=== PATIENT | male | born 1965 | race American Indian/Alaskan Native ===

== ENCOUNTER 2019-06-02 01:54 | Emergency (ER) | payer SELFPAY ==
--- NOTE | 2019-06-02 02:43 | Emergency Department Report ---
ED ENT HPI - General Chief complaint: High BP Stated complaint: ELEVATED BLOOD PRESSURE, NOSEBLEED Time Seen by Provider: 06/02/19 02:28 Source: patient, EMS Mode of arrival: Ambulatory Limitations: No Limitations - History of Present Illness Initial comments: 53-year-old male with a past medical history of poorly controlled hypertension presents to the hospital complaining of epistaxis from the left nostril that started about 1:45 AM. Bleeding improved prior to arrival. Patient states his blood pressure is chronically elevated with a systolic in the 180s and diastolic above 100. He presents with elevated blood pressure and denies headache, chest pain, shortness of breath, blurred vision, focal weakness, or numbness. He saw his primary care doctor 1 week ago and presented in his blood pressure was 184/100s and was advised to take better care of himself and his medications were not adjusted. Patient takes losartan 100 mg and hydrochlorothiazide 25 mg every morning and he has been compliant. Patient took an extra half tablet of losarta n 100 mg prior to arrival because of the epistaxis. Patient admits to in increasing his salt intake over the last 2 days. Patient denies pain or recent nasal trauma. Patient denies anticoagulant use including aspirin and Plavix. PMD: Dr. Guzman with [facility]. - Related Data Allergies Allergy/AdvReac Type Severity Reaction Status Date / Time No Known Allergies Allergy Unverified 06/02/19 02:40 ED Dental HPI - General Chief complaint: High BP Stated complaint: ELEVATED BLOOD PRESSURE, NOSEBLEED Time Seen by Provider: 06/02/19 02:28 Source: patient, EMS Mode of arrival: Ambulatory Limitations: No Limitations - Related Data Allergies Allergy/AdvReac Type Severity Reaction Status Date / Time No Known Allergies Allergy Unverified 06/02/19 02:40 ED Review of Systems ROS: Stated complaint: ELEVATED BLOOD PRESSURE, NOSEBLEED Other details as noted in HPI Comment: All other systems reviewed and negative ED Past Medical Hx - Past Medical History Previous Medical History?: Yes Hx Hypertension: Yes - Social History Smoking Status: Current Every Day Smoker Substance Use Type: Alcohol ED Physical Exam - General Limitations: No Limitations - Other Other exam information: General: No acute distress Head: Atraumatic Eyes: normal appearance ENT: Moist mucous membranes, dried blood in bilateral nares with left nasal congestion. No active bleeding Neck: Normal appearance, no midline tenderness Chest: Clear to auscultation bilaterally CV: Regular rate and rhythm Abdomen: Soft, normal bowel sounds, nontender, nondistended, no rebound or guarding Back: Normal inspection Extremity: Normal inspection infection, full range of motion Neuro: Alert O x 3, no facial asymmetry, speech clear, no gross motor sensory deficit Psych: Appropriate behavior Skin: No rash ED Course Vital Signs 06/02/19 06/02/19 06/02/19 02:25 02:27 03:01 Temperature 98.4 F Pulse Rate 82 84 79 Respiratory 22 20 20 Rate Blood Pressure 184/116 157/117 O2 Sat by Pulse 95 95 96 Oximetry 06/02/19 06/02/19 06/02/19 04:00 04:20 05:01 Temperature Pulse Rate 78 93 H Respiratory 22 Rate Blood Pressure 186/123 223/117 179/126 O2 Sat by Pulse 94 97 Oximetry - Reevaluation(s) Reevaluation #1: 06/02/19 04:21 bp trending up again, pt upset because he has gotten a blanket and inks that no one is tending to his needs. I reminded patient of our initial conversation about the risk of dropping his blood pressure too low and he was being observed for recurrent bleeding. Patient also states he had rebleeding of his nostril but once again is stopped. Patient offered nasal packing and declined it. Clonidine 0.1 mg ordered to reduce his blood pressure. Since it has increased since his arrival after patient got upset. Reevaluation #2: 06/02/19 05:50 Patient's blood pressure 172/120 and patient states is at about his baseline. Patient also plans to take his BP medications when he gets home. He is currently asymptomatic, denies pain, and no epistaxis. Will be discharged to follow-up with PMD ED Medical Decision Making - Lab Data Result diagrams: 06/02/19 02:45 06/02/19 02:45 Lab Results 06/02/19 06/02/19 Range/Units 02:45 02:45 WBC 6.2 (4.5-11.0) K/mm3 RBC 4.84 (3.65-5.03) M/mm3 Hgb 15.8 H (11.8-15.2) gm/dl Hct 46.1 H (35.5-45.6) % MCV 95 H (84-94) fl MCH 33 H (28-32) pg MCHC 34 (32-34) % RDW 14.3 (13.2-15.2) % Plt Count 265 (140-440) K/mm3 Lymph % (Auto) 28.6 (13.4-35.0) % Williams % (Auto) 14.4 H (0.0-7.3) % Eos % (Auto) 1.2 (0.0-4.3) % Baso % (Auto) 0.8 (0.0-1.8) % Lymph # 1.8 (1.2-5.4) K/mm3 Williams # 0.9 H (0.0-0.8) K/mm3 Eos # 0.1 (0.0-0.4) K/mm3 Baso # 0.1 (0.0-0.1) K/mm3 Seg Neutrophils % 55.0 (40.0-70.0) % Seg Neutrophils # 3.4 (1.8-7.7) K/mm3 Sodium 137 (137-145) mmol/L Potassium 3.8 (3.6-5.0) mmol/L Chloride 100.3 (98-107) mmol/L Carbon Dioxide 24 (22-30) mmol/L Anion Gap 17 mmol/L BUN 22 H (9-20) mg/dL Creatinine 1.3 (0.8-1.5) mg/dL Estimated GFR 58 ml/min BUN/Creatinine Ratio 17 % Glucose 120 H (75-100) mg/dL Calcium 9.3 (8.4-10.2) mg/dL - Medical Decision Making During ed stay, no further bleeding bp chronically elevated and trending downward after clonidine labs unremarkable plan to d/c with ent and pmd f/u - Differential Diagnosis Epistaxis, coagulopathy, hypertensive emergency, chronic hypertension Critical Care Time: No Critical care attestation.: If time is entered above; I have spent that time in minutes in the direct care of this critically ill patient, excluding procedure time. ED Disposition Clinical Impression: Epistaxis, Uncontrolled hypertension Disposition: TO HOME OR SELFCARE Is pt being admited?: No Does the pt Need Aspirin: No Condition: Stable Instructions: Epistaxis (ED), Hypertension (ED) Additional Instructions: Continue your current medications as prescribed. Follow-up with your doctor or doctor/clinic provided. Return if symptoms worsen as indicated by your discharge instructions. Referrals: Your, PMD [Other] - 2-3 Days NIRAJ JAVED MD [Staff Physician] - 3-5 Days (ENT) Time of Disposition: 05:51
[2019-06-02 03:02] LABS: Basophils # (Auto) 0.1 K/mm3 (0.0-0.1); Basophils % (Auto) 0.8 % (0.0-1.8); Eosinophils # (Auto) 0.1 K/mm3 (0.0-0.4); Eosinophils % (Auto) 1.2 % (0.0-4.3); Hematocrit 46.1 % (35.5-45.6); Hemoglobin 15.8 gm/dl (11.8-15.2); Lymphocytes # (Auto) 1.8 K/mm3 (1.2-5.4); Lymphocytes % (Auto) 28.6 % (13.4-35.0); Mean Corpuscular HGB Conc 34 % (32-34); Mean Corpuscular Volume 95 fl (84-94); Monocytes # (Auto) 0.9 K/mm3 (0.0-0.8); Monocytes % (Auto) 14.4 % (0.0-7.3); Platelet Count 265 K/mm3 (140-440); Red Blood Count 4.84 M/mm3 (3.65-5.03); Red Cell Distribution Width 14.3 % (13.2-15.2)
[2019-06-02 03:28] LABS: Calcium 9.3 mg/dL (8.4-10.2)
[2019-06-02] MEDS ORDERED: cloNIDine 0.2 MG TAB PO ONE (04:16)
[2019-06-02] MEDS ORDERED: cloNIDine 0.1 MG TAB PO ONE (04:17)
[2019-06-02 05:18] VITALS: BP 179/126
== END 2019-06-02 06:15 | disposition home or self-care (01) ==
LOC: ED 01:54
DX: R04.0 Epistaxis (principal); I10 Essential (primary) hypertension; F17.200 Nicotine dependence, unspecified, uncomplicated
CPT/HCPCS: 36415; 80048; 85025

== ENCOUNTER 2019-06-02 12:28 | Emergency (ER) | payer SELFPAY ==
--- NOTE | 2019-06-02 14:05 | Event Note ---
ED Screening Note Date of service: 06/02/19 Time: 14:02 ED Screening Note: 53 y/o male comes back in for nose bleed. Patient was seen last night for the same. This initial assessment/diagnostic orders/clinical plan/treatment(s) is/are subject to change based on patients health status, clinical progression and re- assessment by fellow clinical providers in the ED. Further treatment and workup at subsequent clinical providers discretion. Patient/guardian urged not to elope from the ED as their condition may be serious if not clinically assessed and managed. Initial orders include:
[2019-06-02 14:06] VITALS: BP 193/130
[2019-06-02] MEDS ORDERED: OXYMETAZOLINE 0.05% NASAL SPRAY NS ONE (14:13)
[2019-06-02] MEDS ORDERED: ACETAMINOPHEN 500 MG TAB PO ONE (14:14)
[2019-06-02] MEDS ORDERED: ACETAMINOPHEN 500 MG TAB ONE (14:17)
--- NOTE | 2019-06-02 14:30 | Emergency Department Report ---
ED ENT HPI - General Chief complaint: Nosebleed Stated complaint: NOSE BLEED Time Seen by Provider: 06/02/19 14:02 Source: patient Mode of arrival: Ambulatory Limitations: No Limitations - History of Present Illness Initial comments: 53-year-old male with a past medical history of poorly controlled hypertension presents to the hospital complaining of epistaxis from the left nostril that re- started this morning. Bleeding improved prior to arrival. Patient takes losartan 100 mg and hydrochlorothiazide 25 mg every morning and he has been compliant. Patient denies pain or recent nasal trauma. Patient denies anticoagulant use including aspirin and Plavix. PMD: with [facility]. complaint: epistaxis Onset/Timin -: days(s) Location: nose Severity: moderate Severity scale (0 -10): 4 Context-Epistaxis: history of similar - Related Data Previous Rx's Medication Instructions Recorded Last Taken Type Sulfamethoxazole/Trimethoprim 1 each PO BID #14 tablet 06/02/19 Unknown Rx [Bactrim DS TAB] amLODIPine 10 mg PO DAILY #30 tab 06/02/19 Unknown Rx Allergies Allergy/AdvReac Type Severity Reaction Status Date / Time No Known Allergies Allergy Verified 06/02/19 14:01 ED Dental HPI - General Chief complaint: Nosebleed Stated complaint: NOSE BLEED Time Seen by Provider: 06/02/19 14:02 Source: patient Mode of arrival: Ambulatory Limitations: No Limitations - Related Data Previous Rx's Medication Instructions Recorded Last Taken Type Sulfamethoxazole/Trimethoprim 1 each PO BID #14 tablet 06/02/19 Unknown Rx [Bactrim DS TAB] amLODIPine 10 mg PO DAILY #30 tab 06/02/19 Unknown Rx Allergies Allergy/AdvReac Type Severity Reaction Status Date / Time No Known Allergies Allergy Verified 06/02/19 14:01 ED Review of Systems ROS: Stated complaint: NOSE BLEED Other details as noted in HPI Comment: All other systems reviewed and negative ED Past Medical Hx - Past Medical History Hx Hypertension: Yes - Surgical History Past Surgical History?: No - Social History Smoking Status: Current Every Day Smoker Substance Use Type: None - Medications Home Medications: Home Medications Medication Instructions Recorded Confirmed Last Taken Type Sulfamethoxazole/Trimethoprim 1 each PO BID #14 tablet 06/02/19 Unknown Rx [Bactrim DS TAB] amLODIPine 10 mg PO DAILY #30 tab 06/02/19 Unknown Rx ED Physical Exam - General Limitations: No Limitations General appearance: alert, in no apparent distress - Head Head exam: Present: atraumatic, normocephalic - Eye Eye exam: Present: normal appearance - ENT ENT exam: Present: mucous membranes moist - Neck Neck exam: Present: normal inspection, full ROM - Neurological Exam Neurological exam: Present: alert, oriented X3, normal gait ED Course Vital Signs 06/02/19 06/02/19 12:33 14:04 Temperature 97.7 F Pulse Rate 87 94 H Respiratory 17 16 Rate Blood Pressure 176/132 193/130 [Right] O2 Sat by Pulse 98 97 Oximetry - Procedure Description Procedures done: nasal rocket with Afrin and lube placed in left nostril. Patient tolerated well. Critical care attestation.: If time is entered above; I have spent that time in minutes in the direct care of this critically ill patient, excluding procedure time. ED Disposition Clinical Impression: Epistaxis, Uncontrolled hypertension Disposition: - TO HOME OR SELFCARE Is pt being admited?: No Does the pt Need Aspirin: No Condition: Stable Instructions: Epistaxis (ED), Chronic Hypertension (ED), Hypertension (ED) Additional Instructions: Follow up your Primary Care provider in three days to have Blood pressure checked and removal of nasal Rocket. Prescriptions: amLODIPine 10 mg PO DAILY #30 tab Sulfamethoxazole/Trimethoprim [Bactrim DS TAB] 1 each PO BID #14 tablet Referrals: NIRAJ JAVED MD [Staff Physician] - 3-5 Days CANDIDO KAHN MD [Referring] - 3-5 Days Forms: Work/School Release Form(ED)
== END 2019-06-02 15:22 | disposition home or self-care (01) ==
LOC: ED 12:28
DX: R04.0 Epistaxis (principal); I10 Essential (primary) hypertension; F17.200 Nicotine dependence, unspecified, uncomplicated; Z79.899 Other long term (current) drug therapy

== ENCOUNTER 2019-08-16 19:04 | Emergency (ER) | payer SELFPAY ==
[2019-08-16] MEDS ORDERED: cloNIDine 0.2 MG TAB PO ONE (20:29)
--- NOTE | 2019-08-16 20:35 | Emergency Department Report ---
ED General Adult HPI - General Chief complaint: High BP Stated complaint: HBP/BLEEDING NOSE Time Seen by Provider: 08/16/19 20:29 Source: patient Mode of arrival: Ambulatory Limitations: No Limitations - History of Present Illness Initial comments: 54-year-old male with history of hypertension presents to ED with epistaxis and elevated blood pressure. Patient states he has been compliant with his blood pressure medications, losartan and "a water pill." Patient states he took both medications this morning. Patient states he began to have a nosebleed, which led him to believe that his blood pressure was elevated, since he has experienced these episodes in the past. Patient reports eating baked pork chops and yellow rice, which he states probably was season with too much salt. Patient denies headache, dizziness, nausea or vomiting, chest pain, shortness of breath, extremity numbness or weakness. Patient reports he has been using Afrin spray for his sinus congestion due to his allergies for the last couple of weeks. PCP: [facility] -: This evening Consistency: constant Improves with: none Worsens with: none Associated Symptoms: denies: chest pain, headaches, nausea/vomiting, shortness of breath - Related Data Previous Rx's Medication Instructions Recorded Last Taken Type Sulfamethoxazole/Trimethoprim 1 each PO BID #14 tablet 06/02/19 Unknown Rx [Bactrim DS TAB] amLODIPine 10 mg PO DAILY #30 tab 06/02/19 Unknown Rx Allergies Allergy/AdvReac Type Severity Reaction Status Date / Time No Known Allergies Allergy Verified 06/02/19 14:01 ED Review of Systems ROS: Stated complaint: HBP/BLEEDING NOSE Other details as noted in HPI Comment: All other systems reviewed and negative ENT: epistaxis Respiratory: denies: shortness of breath Cardiovascular: denies: chest pain Gastrointestinal: denies: nausea, vomiting Neurological: denies: headache, weakness, numbness, vertigo ED Past Medical Hx - Past Medical History Previous Medical History?: Yes Hx Hypertension: Yes - Surgical History Past Surgical History?: No - Social History Smoking Status: Current Every Day Smoker - Medications Home Medications: Home Medications Medication Instructions Recorded Confirmed Last Taken Type Sulfamethoxazole/Trimethoprim 1 each PO BID #14 tablet 06/02/19 Unknown Rx [Bactrim DS TAB] amLODIPine 10 mg PO DAILY #30 tab 06/02/19 Unknown Rx ED Physical Exam - General Limitations: No Limitations General appearance: alert, in no apparent distress - Head Head exam: Present: atraumatic, normocephalic - Eye Eye exam: Present: normal appearance - ENT ENT exam: Present: other (Dried blood in nares) - Neck Neck exam: Present: normal inspection - Respiratory Respiratory exam: Present: normal lung sounds bilaterally. Absent: respiratory distress - Cardiovascular Cardiovascular Exam: Present: regular rate, normal rhythm - GI/Abdominal GI/Abdominal exam: Present: soft. Absent: distended, tenderness - Extremities Exam Extremities exam: Present: normal inspection - Neurological Exam Neurological exam: Present: alert, oriented X3, CN II-XII intact. Absent: motor sensory deficit - Psychiatric Psychiatric exam: Present: normal affect, normal mood - Skin Skin exam: Present: warm, dry, intact, normal color ED Course Vital Signs 08/16/19 08/16/19 08/16/19 19:12 19:44 20:01 Temperature 97.7 F Pulse Rate 93 H 81 79 Respiratory 18 20 21 Rate Blood Pressure 237/142 O2 Sat by Pulse 99 97 97 Oximetry 08/16/19 08/16/19 08/16/19 20:30 21:01 21:30 Temperature Pulse Rate 77 74 Respiratory 19 21 Rate Blood Pressure 203/123 221/137 216/137 O2 Sat by Pulse 97 98 98 Oximetry 08/16/19 08/16/19 08/16/19 21:37 22:00 23:01 Temperature Pulse Rate 71 72 Respiratory 20 Rate Blood Pressure 216/137 213/132 209/128 O2 Sat by Pulse 97 93 Oximetry ED Medical Decision Making - Lab Data Result diagrams: 08/16/19 20:34 08/16/19 20:34 - EKG Data -: EKG Interpreted by Sd EKG shows normal: sinus rhythm, axis, intervals, QRS complexes Rate: normal - EKG Data Interpretation: nonspecific ST-T wave beverley - Medical Decision Making 54-year-old male with uncontrolled hypertension and epistaxis. SBP initially in the 230s. Neuro exam normal and nonfocal. Patient without any headache or dizziness, chest pain or shortness of breath. Clonidine given for elevated blood pressure. Epistaxis resolved with constant steady pressure to the nose. Patient's blood pressure is likely elevated due to his daily use of Afrin spray which is known to raise blood pressure. This in addition to the fact that patient admits to having increased salt in his diet has probably led to the elevation in patient's blood pressure. Patient is currently asymptomatic. Current systolic BP is 209. Patient has been advised to continue to take his daily blood pressure medications, and has also been advised to immediately discontinue use of his Afrin spray. I believe with discontinuation of this Afrin spray patient's blood pressure will improved significantly. Advised patient to follow-up with his PCP. Return precautions given. - Differential Diagnosis Uncontrolled hypertension, epistaxis Critical care attestation.: If time is entered above; I have spent that time in minutes in the direct care of this critically ill patient, excluding procedure time. ED Disposition Clinical Impression: Uncontrolled hypertension, Epistaxis Disposition: - TO HOME OR SELFCARE Is pt being admited?: No Condition: Stable Instructions: Epistaxis (ED), Hypertension (ED) Referrals: PRIMARY CARE, [Primary Care Provider] - 3-5 Days NIRAJ JAVED MD [Staff Physician] - 3-5 Days Time of Disposition: 23:06
[2019-08-16 20:55] LABS: Basophils # (Auto) 0.1 K/mm3 (0.0-0.1); Basophils % (Auto) 1.1 % (0.0-1.8); Eosinophils # (Auto) 0.1 K/mm3 (0.0-0.4); Eosinophils % (Auto) 1.6 % (0.0-4.3); Hematocrit 45.5 % (35.5-45.6); Hemoglobin 15.4 gm/dl (11.8-15.2); Lymphocytes # (Auto) 2.1 K/mm3 (1.2-5.4); Mean Corpuscular HGB Conc 34 % (32-34); Mean Corpuscular Volume 96 fl (84-94); Monocytes # (Auto) 0.8 K/mm3 (0.0-0.8); Monocytes % (Auto) 14.7 % (0.0-7.3); Platelet Count 261 K/mm3 (140-440); Red Blood Count 4.74 M/mm3 (3.65-5.03); Red Cell Distribution Width 13.1 % (13.2-15.2)
[2019-08-16 21:16] LABS: BUN/Creatinine Ratio 17; Blood Urea Nitrogen 19 mg/dL (9-20); Calcium 9.3 mg/dL (8.4-10.2); Hemolysis Index 4
[2019-08-16 23:25] VITALS: BP 209/128
== END 2019-08-16 23:10 | disposition home or self-care (01) ==
LOC: ED 19:04
DX: R04.0 Epistaxis (principal); I10 Essential (primary) hypertension; F17.200 Nicotine dependence, unspecified, uncomplicated; Z79.899 Other long term (current) drug therapy
CPT/HCPCS: 36415; 80048; 85025; 99283

== ENCOUNTER 2019-08-17 06:05 | Emergency (ER) | payer SELFPAY ==
--- NOTE | 2019-08-17 06:25 | Emergency Department Report ---
HPI - General Chief Complaint: Nosebleed Time Seen by Provider: 08/17/19 06:20 - HPI HPI: 54-year-old -[place] male presents to the emergency department with right-sided epistaxis, for which she was seen here last night. He has a history of hypertension and consistent Afrin use. Last night he was given some clonidine for his blood pressure and with BP control and some pressure held to the nose, they were able to stop the epistaxis without packing and the patient was discharged home. He says that the bleeding started up again this morning about 30 minutes prior to arrival. He took his losartan 100 mg about that time. ED Past Medical Hx - Past Medical History Previous Medical History?: Yes Hx Hypertension: Yes - Surgical History Past Surgical History?: No - Social History Smoking Status: Current Every Day Smoker - Medications Home Medications: Home Medications Medication Instructions Recorded Confirmed Last Taken Type Sulfamethoxazole/Trimethoprim 1 each PO BID #14 tablet 06/02/19 Unknown Rx [Bactrim DS TAB] amLODIPine 10 mg PO DAILY #30 tab 06/02/19 Unknown Rx Amoxicillin/K Clav Tab [Augmentin 1 each PO BID #10 tablet 08/17/19 Unknown Rx 875MG TAB] ED Review of Systems ROS: Stated complaint: NOSE BLEED Other details as noted in HPI Comment: All other systems reviewed and negative Constitutional: denies: chills, fever ENT: epistaxis Respiratory: denies: cough, shortness of breath Cardiovascular: denies: chest pain, palpitations Gastrointestinal: denies: abdominal pain, vomiting Neurological: denies: headache, weakness Physical Exam - Physical Exam Physical Exam: GENERAL: The patient is well-developed well-nourished. HENT: Normocephalic. Atraumatic. Patient has moist mucous membranes. Mild to moderate oozing of blood from the right nasal passage. EYES: Extraocular motions are intact. Pupils equal reactive to light bilaterally. NECK: Supple. Trachea is midline. CHEST/LUNGS: Clear to auscultation. There is no respiratory distress noted. HEART/CARDIOVASCULAR: Regular. There is no tachycardia. There is no murmur. ABDOMEN: There is no abdominal distention. SKIN: Skin is warm and dry. NEURO: The patient is awake, alert, and oriented. The patient is cooperative. Normal speech. MUSCULOSKELETAL: There is no tenderness or deformity. There is no evidence of acute injury. - Procedure Description Procedures done: Nasal packing done with a Rhino Rocket. Sterile lubricant was placed on the Rhino Rocket and the Rhino Rocket was placed inside of the right nasal passage almost completely to the end. The Rhino Rocket was inflated with about 5 cc of sterile saline and the bulb was taped to the right side of the face. No obvious complications from this procedure. ED Medical Decision Making - Medical Decision Making This patient presents to the emergency department again with epistaxis. It appears to be right-sided, however a small amount of blood has been seen coming from the left nasal passage after the patient had 1 episode of vomiting and one episode of trying to clear some blood clots from his throat. 1 of the other issues is the patient's blood pressure. He took his losartan and hydrochlorothiazide this morning but presents with extremely elevated blood pressure. I have suspicion that the patient maintains elevated blood pressure regularly as he says that it is often elevated when he sees a physician but does not check his own blood pressure at home. Patient was given some Afrin to the right nasal passage, held pressure, and was given a dose of labetalol. His blood pressure came down slightly in the bleeding appeared to slow down if not stop. However the patient said that he got very nauseated and had one episode of vomiting and then the bleeding restarted and/or increased. The blood pressure went back up so he was given a dose of hydralazine. He was still having some consistent mild oozing from that right nasal passage so the decision was made to do a nasal packing with a Rhino Rocket. After the packing was placed the bleeding greatly decreased and eventually did stop with blood pressure control. He did require one last dose of labetalol and his blood pressure came down to a much more reasonable level. He will be discharged home on Augmentin and multiple referrals for otolaryngology. He will try to stay away from foods that are high in salt and caffeinated products, take his blood pressure medications as prescribed, and keep a blood pressure log. He will return to the emergency department with any worsening of his symptoms or any acute distress. His BP upon discharge was about 130/90. Critical Care Time: No Critical care attestation.: If time is entered above; I have spent that time in minutes in the direct care of this critically ill patient, excluding procedure time. ED Disposition Clinical Impression: Epistaxis, Uncontrolled hypertension Disposition: DC-01 TO HOME OR SELFCARE Is pt being admited?: No Condition: Stable Instructions: Epistaxis (ED), Hypertension (ED) Additional Instructions: Keep the nasal packing in until follow-up with the ear nose throat physician. However, you need to try and see an ENT in the next few days. Take the antibiotics as prescribed. Take your blood pressure medications as prescribed. Try and stay away from foods that are high in salt and caffeinated products. Keep a blood pressure log. Return to the emergency department with any return of your nosebleeds, worsening of your symptoms, or with any acute distress. Prescriptions: Amoxicillin/K Clav Tab [Augmentin 875MG TAB] 1 each PO BID #10 tablet Referrals: ALBERTO BEAN MD [Staff Physician] - 2-3 Days NAOMI CARERRA MD [Staff Physician] - 2-3 Days JOHN NAJERA MD [Staff Physician] - 2-3 Days NIRAJ JAVED MD [Staff Physician] - 2-3 Days Time of Disposition: 09:55
[2019-08-17] MEDS ORDERED: OXYMETAZOLINE 0.05% NASAL SPRAY NS ONE (06:26)
[2019-08-17] MEDS ORDERED: hydrALAZINE 20 MG/1 ML INJ IV ONE ×2 (08:03→09:52)
[2019-08-17 08:45] VITALS: BP 187/124
[2019-08-17] MEDS ORDERED: ONDANSETRON 4 MG/2 ML INJ ONE (08:47)
[2019-08-17] MEDS ORDERED: AMOXICILLIN/K CLAV 875/125MG TAB PO ONE (09:32)
== END 2019-08-17 10:30 | disposition home or self-care (01) ==
LOC: ED 06:05
DX: R04.0 Epistaxis (principal); I10 Essential (primary) hypertension; F17.200 Nicotine dependence, unspecified, uncomplicated; Z79.899 Other long term (current) drug therapy
CPT/HCPCS: 30901; 93005; 96374; 96375; 96376; 99283; J0360; J2405